=== PATIENT | female | born 1995 | race Caucasian/White ===

== ENCOUNTER 2018-01-29 00:36 | Emergency (ER) | payer SELFPAY | END 2018-01-29 03:42 | disposition home or self-care (01) | LOC: ER 00:36 | DX: S50.861A Insect bite (nonvenomous) of right forearm, initial encounter (principal); J45.909 Unspecified asthma, uncomplicated; Z88.0 Allergy status to penicillin; W57.XXXA Bitten or stung by nonvenomous insect and other nonvenomous arthropods, initial encounter; Y93.89 Activity, other specified; Y92.89 Other specified places as the place of occurrence of the external cause | CPT/HCPCS: 99283 ==

== ENCOUNTER 2021-06-05 07:33 | Emergency (ER) | payer SELFPAY ==
[~2021-06-05] VITALS: Ht 157.5 cm; Wt 77.2 kg
[~2021-06-05 07:33] MED LIST: DIPH25CA58 PO; DOXY100T PO
[2021-06-05] MEDS ORDERED: FAMOTIDINE 20 MG/2 ML VIAL IVP ONE (08:30)
[2021-06-05] MEDS ORDERED: IV NORMAL SALINE 1000ML BAG 1,000 ML IV ONE (08:30)
[2021-06-05] MEDS ORDERED: ONDANSETRON PF 4 MG/2 ML VIAL. IVP ONE (08:30)
[2021-06-05] MEDS ORDERED: KETOROLAC 15 MG/ML VIAL. IVP ONE (08:30)
[2021-06-05 08:33] LABS: BILIRUBIN,URINE NEGATIVE (NEG); CLARITY,URINE CLEAR; COLOR,URINE YELLOW; NITRITE,URINE NEGATIVE (NEG); PROTEIN,URINE NEGATIVE (NEG-TRACE); UROBILINOGEN,URINE 0.2 mg/dL (0.2 mg/dL)
--- NOTE | 2021-06-05 08:34 | PHYS DOC ---
Past Medical History Past Medical History: Asthma Past Surgical History: Cholecystectomy Smoking Status: Current Every Day Smoker Additional Information: 0.5 PPD Alcohol Use: Occasionally Drug Use: Marijuana General Adult EDM: Chief Complaint: ABDOMINAL PAIN HPI: HPI: Patient is a 25-year-old female presents with report of abdominal pain x3 to 4 days. Patient reports associated nausea. Reports today she did have episode of vomiting. Patient reports history of recent dental infection for which she has been taking clindamycin, ibuprofen, and prednisone. Denies known sick contacts. Denies known exposure to COVID-19. Patient does report she is currently not vaccinated for COVID-19. Denies . Denies diarrhea or constipation. Denies fever or chills. Denies dysuria but reports increased urinary frequency. Review of Systems: Review of Systems: Constitutional: Denies fever or chills Eyes: Denies redness or eye pain HENT: Denies nasal congestion or sore throat Respiratory: Denies cough or shortness of breath Cardiovascular: Denies chest pain or palpitations GI: Reports upper abdominal pain, nausea, and vomiting; denies diarrhea or constipation : Denies dysuria or hematuria; reports increased urinary frequency Musculoskeletal: Denies back pain or joint pain Integument: Denies rash or skin lesions Neurologic: Denies headache, focal weakness or sensory changes Complete systems were reviewed and found to be within normal limits, except as documented in this note. Heart Score: C/O Chest Pain: N/A Current Medications: Current Medications Medications (Trade) Dose Ordered Sig/Carmelina Start Time Stop Time Status Last Admin Dose Admin Famotidine (Pepcid Vial) 20 mg 1X ONCE 06/05/21 08:30 06/05/21 08:31 UNV Ketorolac Tromethamine (Toradol 15mg Vial) 15 mg 1X ONCE 06/05/21 08:30 06/05/21 08:31 UNV Ondansetron HCl (Zofran) 4 mg 1X ONCE 06/05/21 08:30 06/05/21 08:31 UNV Sodium Chloride 1,000 ml @ 1,000 mls/hr 1X ONCE 06/05/21 08:30 06/05/21 09:29 UNV Allergies: Allergies: Allergies Coded Allergies Type Severity Reaction Last Updated Verified Penicillins Allergy Mild light headed, dizzy 01/29/18 Yes Physical Exam: PE: Constitutional: Well developed, well nourished, no acute distress, non-toxic appearance HENT: Normocephalic, atraumatic Eyes: Conjunctiva normal, no discharge Neck: Normal range of motion, supple Lungs & Thorax: No respiratory distress, equal chest rise and fall Abdomen: Soft, epigastric tenderness, no guarding/rebound tenderness/distention Skin: Warm, dry, no erythema, no rash Back: No tenderness, no CVA tenderness Extremities: No tenderness, ROM intact, no edema Neurologic: Alert and oriented X 3, no focal deficits noted Psychologic: Affect normal, judgment normal Current Patient Data: Labs: Laboratory Tests Test 06/05/21 08:19 POC Urine HCG, Qualitative Hcg negative (Negative) Vital Signs: Vital Signs Date Time Temp Pulse Resp B/P (MAP) Pulse Ox O2 Delivery O2 Flow Rate FiO2 06/05/21 08:05 97.7 63 17 105/61 (91) 96 Room Air 97.7 EKG: EKG: [] Radiology/Procedures: Radiology/Procedures: [] Course & Med Decision Making: Course & Med Decision Making Pertinent Lab studies reviewed. (See chart for details) Patient presents with report of upper abdominal pain with associated nausea and vomiting that is been ongoing for the past 3 to 4 days. Patient also reports some generalized malaise. Labs obtained and posted to chart. Symptomatic treatment provided. IV fluid hydration given. Cannot exclude COVID-19. Patient is not vaccinated. Covid testing pending. Patient stable for discharge with outpatient follow-up with PCP/GI. GI referral provided. Discussed findings and plan with patient and significant other, who acknowledge understanding and agreement. COVID-19 CRITERIA: The patient was evaluated during the global COVID-19 pandemic, and that diagnosis was suspected/considered upon their initial presentation. Their evaluation, treatment and testing was consistent with current guidelines for patients who present with complaints or symptoms that may be related to COVID-19. Dragon Disclaimer: Divya Disclaimer: This electronic medical record was generated, in whole or in part, using a voice recognition dictation system. Departure Departure Impression: Primary Impression: Abdominal pain Qualified Codes: R10.10 - Upper abdominal pain, unspecified Additional Impressions: Nausea and vomiting Qualified Codes: R11.2 - Nausea with vomiting, unspecified Suspected COVID-19 virus infection Disposition: HOME / SELF CARE / HOMELESS Condition: STABLE Referrals: NO PCP (PCP) ALPESH DIAMOND MD Patient Instructions: Abdominal Pain, [id number], Clear Liquid Diet, [id number], Nausea and Vomiting, [id number] Additional Instructions: You have been tested for or diagnosed with COVID-19. It is an infection caused by a new type of coronavirus. COVID-19 will cause cold-like or mild flu symptoms in most. It can cause more severe symptoms like problems breathing in some. There is no treatment for COVID-19. The body will clear the infection over time. Self-care will help to ease discomfort. Steps to Take: Self-Care Rest as needed. Healthy habits may help you feel better. Steps include: Choose healthy foods including fruits and vegetables. Drink water throughout the day. Get plenty of sleep each night. If you smoke, try to quit. It may ease breathing. Avoid alcohol. Keep Others Healthy The virus can spread to others. Droplets are released every time you sneeze or cough. The droplets can get into the mouth, nose, or eyes of people near you and lead to infection. To lower the chances of spreading COVID-19 to others: Stay at home until your doctor has said it is safe to leave. If you tested positive this will mean staying isolated until both of the following are true: At least 7 days have passed since the start of illness. You are free of fever for at least 72 hours without the use of medicine. During this time: - Avoid public areas, events, or transportation. Do not return to work or school until your doctor has said it is safe to do so. - Call ahead if you need to go to a medical center. Let them know you may have COVID-19. It will help them guide you where to go. They may also ask you to wear a facemask when you come to the office. - If you call for emergency medical services, let them know you may have COVID- 19. While at home: - Try to avoid close contact with others. Stay about 6 feet away. - If possible, spend most of your time in a separate room from others. - Use a face mask if you will be in close contact with others such as sharing a room or vehicle. - Have someone wipe down common surfaces in the home. Use household tire rebuilder every day on areas like doorknobs, counters, or sinks. - Cough or sneeze into a tissue. Throw the tissue away right after use. If a ti ssue is not available, cough or sneeze into your elbow. - Wash your hands often. Wash them after sneezing or coughing. Use soap and water and wash for at least 20 seconds. Alcohol based hand boiler cleaner can be used if soap and water is not available. - Do not prepare food for others. Avoid sharing personal items like forks, spoons, or toothbrushes. - Avoid close contact with pets while you are sick. There is no evidence of the virus passing to pets. This is a safety step until more is known about this virus. Isolation can be frustrating. Social interaction can help. Keep in touch with friends and family through phone and tech options. You can still interact with others in your home, just keep a safe distance of about 6 feet. Follow-up: Your doctors office will check in with you to see if there are any changes in your health. You may be asked to keep track of symptoms to share with them. They will also let you know when you are clear to be in public again. Problems to Look Out For: Contact your doctor if your recovery is not going as you expect. Get emergency care if you have problems such as: - Trouble breathing - Nonstop chest pain or pressure - Changes in awareness, confusion, or problems waking - Lips or face have bluish color - Worsening of symptoms If you think you have an emergency, call for emergency medical services right away. As taken from [facility] [place] [facility] Ondansetron (ONDANSETRON ODT) 4 Mg Tab.rapdis 1 TAB PO PRN Q6-8HRS PRN for NAUSEA, #16 TAB Prov: ALAINA COLLINS DO 06/05/21 Famotidine (PEPCID) 20 Mg Tablet 20 MG PO BID for 7 Days, #14 TAB Prov: ALAINA COLLINS DO 06/05/21 COVID-19 Assessment: COVID-19 Patient Risks: Age 65 or older: No Sign of co-morbidity: No Exp to person + for COVID: No Exp to PUI: No Travel from affected area: No Lower respiratory symptoms: No Fever: No Other: Yes PPE Use: Full PPE with N95 mask or PAPR: Yes ALAINA COLLINS DO Jun 05, 2021 08:34
[2021-06-05 08:43] LABS: BASO # 0.1 x10^3/uL (0.0-0.2); BASO % 1 % (0-3); EOS # 0.1 x10^3/uL (0.0-0.7); EOS % 1 % (0-3); HEMATOCRIT 39.2 % (36.0-47.0); HEMOGLOBIN 13.1 g/dL (12.0-15.5); LYMPH # 2.9 x10^3/uL (1.0-4.8); LYMPH % 27 % (24-48); MEAN CORPUSCULAR HEMOGLOBIN 29 pg (25-35); MEAN CORPUSCULAR HGB CONC 33 g/dL (31-37); MEAN CORPUSCULAR VOLUME 86 fL (79-100); MONO # 0.7 x10^3/uL (0.0-1.1); MONO % 6 % (0-9); NEUT # 7.2 x10^3/uL (1.8-7.7); NEUT % 66 % (31-73); PLATELET COUNT 243 x10^3/uL (140-400); RED BLOOD COUNT 4.57 x10^6/uL (3.50-5.40); RED CELL DISTRIBUTION WIDTH 13.7 % (11.5-14.5); WHITE BLOOD COUNT 10.9 x10^3/uL (4.0-11.0)
[2021-06-05 08:49] LABS: BACTERIA,URINE FEW /HPF (0-FEW); WBC,URINE OCC /HPF (0-4)
[2021-06-05 09:43] LABS: CALCIUM 8.2 mg/dL (8.5-10.1); CREATININE 0.6 mg/dL (0.6-1.0); GFR 120.8; POTASSIUM 3.8 mmol/L (3.5-5.1)
[2021-06-05 09:48] LABS: ALBUMIN 2.5 g/dL (3.4-5.0); ALBUMIN/GLOBULIN RATIO 0.8 (1.0-1.7); MAGNESIUM 1.8 mg/dL (1.8-2.4); TOTAL BILIRUBIN 0.2 mg/dL (0.2-1.0); TOTAL PROTEIN 5.6 g/dL (6.4-8.2)
[2021-06-05 11:03] VITALS: BP 122/70
[2021-06-05] MEDS ORDERED: FAMO-63 PO (11:10)
[2021-06-05] MEDS ORDERED: ONDA4TAB12 PO (11:10)
--- NOTE | 2021-06-05 18:30 | NUR ---
IP: Informed pt of negative covid test. Pt verbalized understanding.
== END 2021-06-05 11:28 | disposition home or self-care (01) ==
LOC: ER 07:42
DX: R10.13 Epigastric pain (principal); R11.2 Nausea with vomiting, unspecified; R35.0 Frequency of micturition; J45.909 Unspecified asthma, uncomplicated; F17.200 Nicotine dependence, unspecified, uncomplicated; Z20.822 Contact with and (suspected) exposure to COVID-19; Z90.49 Acquired absence of other specified parts of digestive tract; Z88.0 Allergy status to penicillin
CPT/HCPCS: 36415; 80053; 81001; 81025; 83690; 83735; 85025; 96361; 96374; 96375; 99285; J1885; J2405; J3490; J7030; U0003; U0005